=== PATIENT | male | born 1950 | race Caucasian/White ===

== ENCOUNTER 2019-01-14 10:06 | Day surgery (SDC) | payer OTHER ==
[2019-01-06 15:19] VITALS: BMI 39.2
[2019-01-14] MEDS ORDERED: THROMBIN (RECOMBINANT) 5,000 UNIT VIAL TP ONE (11:13)
[2019-01-14] MEDS ORDERED: PROPOFOL 20 ML ONE ×9 (13:03→15:39)
[2019-01-14] MEDS ORDERED: MIDAZOLAM HCL 2 MG/2 ML SINGLE DOSE VIAL ONE (13:24)
[2019-01-14] MEDS ORDERED: ROCURONIUM BROMIDE 50 MG/5 ML SYRINGE ONE (13:26)
[2019-01-14] MEDS ORDERED: EPHEDRINE SULFATE/0.9% NACL/PF 50 MG/10 ML SYRINGE NR ONE (14:22)
[2019-01-14] MEDS ORDERED: NEOSTIGMINE METHYLSULFATE 0.5 MG/ML - 10 ML MDV ONE (14:59)
[2019-01-14] MEDS ORDERED: GLYCOPYRROLATE 0.2 MG/1 ML VIAL ONE (15:00)
[2019-01-14] MEDS ORDERED: BACITRACIN 15 GM TUBE TOPICAL OINTMENT ONE (16:01)
[2019-01-14] MEDS ORDERED: ACETAMINOPHEN 325 MG TABLET (FP) PO PRN (16:29)
[2019-01-14] MEDS ORDERED: oxyCODONE HCL 5 MG TABLET PO PRN ×2 (16:29→16:50)
[2019-01-14] MEDS ORDERED: oxyCODONE HCL 5 MG TABLET PO ONE (16:30)
[2019-01-14] MEDS ORDERED: SODIUM CHLORIDE 0.45% 1,000 ML IV SCH (16:30)
[2019-01-14] MEDS ORDERED: ACETAMINOPHEN 325 MG TABLET (FP) PO ONE (16:30)
[2019-01-14] MEDS ORDERED: ONDANSETRON 4 MG/2 ML VIAL IVPUSH PRN (16:50)
[2019-01-14] MEDS ORDERED: PROMETHAZINE HCL 25 MG/1 ML VIAL IVPUSH PRN (16:50)
[2019-01-14] MEDS: ceFAZolin 2 GRAM PREMIX BAG IVPB SCH (17:28)
[2019-01-14] MEDS: diazePAM 2 MG TABLET PO SCH ×2 (17:28→23:10)
--- NOTE | 2019-01-14 18:47 | OP ---
DATE OF OPERATION: 01/14/2019 PREOPERATIVE DIAGNOSIS: 1. Lumbar disk degeneration. 2. Chronic low back pain. POSTOPERATIVE DIAGNOSIS: 1. Lumbar disk degeneration. 2. Chronic low back pain. PROCEDURE PERFORMED: 1. Partial T8 laminectomy for insertion of [employer] spinal cord stimulator panel. 2. Insertion of [employer] implantable spinal cord pulse generator. 3. Intraoperative testing. SURGEON: Chema Knowles M.D. GARBAGE COLLECTOR DRIVER: Casey Escudero ANESTHESIA: General. INDICATION: Patient is a 68-year-old male with a chronic and severe and longstanding history of degenerative back pain. This has been refractory to management with multiple oral medications, physical therapy, multiple epidural steroid injections. He underwent a spinal cord stimulator trial with excellent success. He is here for permanent spinal cord stimulator placement. Risks, benefits, and alternatives of the surgery were discussed in detail with the patient and family, and informed consent was obtained. DESCRIPTION OF PROCEDURE: The patient was brought into the operating room by stretcher and general endotracheal anesthesia was administered by the anesthesiologist. The patient was then flipped into the prone position on the padded Jung frame. All bony prominences were padded. The back was then prepped and draped in the usual sterile fashion. Prior to prone positioning, leads were placed for intraoperative monitoring with EMGs and SSEPs. A fluoroscopy C-arm was then used to julio c out the incision. The back was then prepped and draped in the usual sterile fashion. Prophylactic IV antibiotics were administered and a timeout was performed. An incision was made at the appropriate level, and the fascia was carried down to the level of the fascia. The fascia was split with electrocautery and subperiosteal dissection was carried down exposing the T8 lamina. The partial laminectomy of the T8 lamina at the midline was then made, exposing the ligamentum flavum which was excised, exposing the spinal cord. The wounds were then copiously irrigated. A paddle was then passed with excellent spanning of the T7 vertebral body as intended preoperatively. Initial example, we intended to place the top edge of the paddle slightly into T6, however, despite multiple attempts, I could not get it past the midline beyond the top of T7. At this point decision was made to accept this positioning. Impedance testing showed excellent results without abdominal EMG activity. The number 1 and number 4 leads were then secured with anchor into the fascia. A tunneler was then used to pass the wires into the pockets for the pulse which was made on the right flank. The leads were then tested with the pulse generator in the pocket which showed excellent response throughout. The leads were then locked into place and the excess lead was looped and placed behind generator. The wounds were then copiously irrigated. After placing the pulse generator completely in the pocket, impedance testing was again done showing excellent responses throughout. The wounds were then irrigated. The deep fascia was closed with number 1 Vicryl suture. The deep dermal tissue approximated with 2-0 Vicryl suture, and the skin was closed with celso. The sterile dressings were applied. The patient tolerated the procedure well without complication. Cierra Reynoso, our P.A.C., was necessary throughout the case for proper assistance throughout the surgery. This could not have been done without skilled procurement assistant. Nery [id number] MTDD
[2019-01-14] MEDS: oxyCODONE HCL 5 MG TABLET PO PRN ×2 (18:52→23:12)
[2019-01-14] MEDS: GABAPENTIN 300 MG CAPSULE (FP) PO SCH (21:17)
[2019-01-14] MEDS: DOCUSATE SODIUM 100 MG CAPSULE (FP) PO SCH (21:17)
[2019-01-14] MEDS: INSULIN SLIDING SCALE (NOVOLOG) 1 VIAL SQ SCH (21:21)
[2019-01-14] MEDS ORDERED: ZOLPIDEM TARTRATE 5 MG TABLET PO PRN (22:00)
[2019-01-14] MEDS ORDERED: VERAPAMIL HCL 180 MG E.R. TABLET PO SCH (22:00)
[2019-01-14] MEDS ORDERED: DONEPEZIL HCL 10 MG TABLET (FP) PO SCH (22:00)
[2019-01-14] MEDS ORDERED: ATORVASTATIN CA 80 MG TABLET (FP) PO SCH (22:00)
[2019-01-15] MEDS: ceFAZolin 2 GRAM PREMIX BAG IVPB SCH (01:28)
[2019-01-15] MEDS: oxyCODONE HCL 5 MG TABLET PO PRN ×2 (05:04→09:10)
[2019-01-15 05:59] VITALS: BP 140/84; PULSE 76; TEMP 98
[2019-01-15] MEDS: diazePAM 2 MG TABLET PO SCH ×2 (06:07→11:13)
[2019-01-15] MEDS: INSULIN SLIDING SCALE (NOVOLOG) 1 VIAL SQ SCH ×2 (06:52→11:13)
[2019-01-15] MEDS: GABAPENTIN 300 MG CAPSULE (FP) PO SCH (09:09)
[2019-01-15] MEDS ORDERED: CLOPIDOGREL BISULFATE 75 MG TABLET (FP) PO SCH (10:00)
[2019-01-15] MEDS ORDERED: CHOLECALCIFEROL (VIT D3) 1,000 UNIT (25 MCG) TABLET PO SCH (10:00)
[2019-01-15] MEDS ORDERED: PATIENT'S OWN MEDICATION (NON-FORMULARY) (Alprazolam [Xanax Xr] 0.5 MG) PO SCH (10:00)
--- NOTE | 2019-01-15 10:57 | PN ---
Progress Note (short form) - Note Progress Note: doing well, complains of some back pain AVSS NVID Motor Intact Wound dressings clean s/p permanent spinal cord stim -d/c home -f/u one week -change with dry dressing until wound dry -ok to shower tomorrow -hold plavix until follow up.
[2019-01-15] MEDS: DOCUSATE SODIUM 100 MG CAPSULE (FP) PO SCH (11:13)
== END 2019-01-15 11:10 | disposition home or self-care (01) ==
LOC: FASU 10:06 → FM/S 17:56 → FASU 01-15 11:10
PROVIDERS: ATTEND Orthopaedic Surgery Orthopaedic Surgery of the Spine
PROC: 00HU0MZ Insertion of Neurostimulator Lead into Spinal Canal, Open Approach (ICD-10-PCS; principal; 2019-01-14 14:42)
PROC: 0JH70DZ Insertion of Multiple Array Stimulator Generator into Back Subcutaneous Tissue and Fascia, Open Approach (ICD-10-PCS; 2019-01-14 14:42)
DX: M51.36 Other intervertebral disc degeneration, lumbar region (principal); M54.5 Low back pain; G89.29 Other chronic pain
CPT/HCPCS: 63655; 63685; C1778; L8679; 72100-TC-FY; 76000-TC-FY; 82962; 94760; 97116-GP; 97162-GP